=== PATIENT | male | born 1950 | race Caucasian/White ===

== ENCOUNTER 2017-10-20 23:05 | Emergency (ER) | payer MEDICARE, OTHER ==
[2017-10-20] MEDS: LIDOCAINE 4% TOPICAL SOLN 50 ML BTL TOP (23:45)
[2017-10-21] MEDS: COCAINE 4% TOP SOLN 4 ML VIAL TOP
== END 2017-10-21 00:33 | disposition home or self-care (01) ==
LOC: M ED 23:05
DX: R04.0 Epistaxis (principal); I10 Essential (primary) hypertension; J45.909 Unspecified asthma, uncomplicated
CPT/HCPCS: 30905